=== PATIENT | male | born 1980 | race Asian ===

== ENCOUNTER 2019-03-12 14:42 | Outpatient (CLI) | payer OTHER | END 2019-03-12 14:44 | disposition short-term general hospital (02) | LOC: AMB 14:42 | DX: R41.82 Altered mental status, unspecified (principal); G40.89 Other seizures | CPT/HCPCS: A0425; A0427 ==

== ENCOUNTER 2019-03-12 14:45 | Observation (INO) | payer OTHER ==
[2019-03-12] VITALS (14 sets, daily range): BP systolic 100–143; BP diastolic 66–101; TEMP 97.7–98.8; Ht 172.7 cm; Wt 59.5 kg
[~2019-03-12] VITALS: Ht 172.7 cm; Wt 59.5 kg
[2019-03-12 15:48] LABS: PLATELET COUNT 192 K/uL (142-355)
[2019-03-12 15:57] LABS: POTASSIUM 2.6 mmol/L (3.6-5.2); SODIUM 129 mmol/L (136-145)
[2019-03-13] VITALS (13 sets, daily range): BP systolic 96–141; BP diastolic 50–102; TEMP 98.7–99.5
[2019-03-13 06:17] LABS: PLATELET COUNT 187 K/uL (142-355)
== END 2019-03-13 12:20 | disposition home or self-care (01) ==
LOC: ED 14:45 → ICU 17:45 → UNDODEPER 03-14 18:10
PROVIDERS: ADMIT Emergency Medicine
DX: G40.509 Epileptic seizures related to external causes, not intractable, without status epilepticus (principal); E87.6 Hypokalemia; F10.129 Alcohol abuse with intoxication, unspecified
CPT/HCPCS: 36415; 80053; 80307; 80320; 82550; 82553; 83735; 84484; 85027; 93005; 96361; 96365; 99220; 99285; G0378; J2060; Q2009